=== PATIENT | female | born 1935 | race Caucasian/White ===

== ENCOUNTER 2017-10-04 15:40 | Emergency (ER) | payer MEDICARE ==
[~2017-10-04] VITALS: Ht 167.6 cm; Wt 90.9 kg
[~2017-10-04 15:40] MED LIST: ALEVE220 M1 OR; CALCIUM +D OR; D-3-55000 UNIT OR; DILANTIN100 MG PO; E400400 UNIT OR; FLUZONE SPLT1 M1 IM; FOLIC ACID1 MG PO; GINKGO BILOBA500 MG OR; KEFLEX500 MG PO; LEVOTHYROXIN150 MC1 PO; MELOXICAM15 MG PO; MSM1000 MG OR; NAPROXEN500 MG PO; PERCOCET 5/325M1 TAB PO; PERCOCET1 TA4 PO; PHENYTOIN EX100 MG OR; PHENYTOIN EX100 MG PO; SIMVASTATIN20 MG PO; SIMVASTATIN80 MG OR; WHEELCHAIR; [UNRECOGNIZED DRUG - CODE] PO
[2017-10-04 16:54] LABS: HEMATOCRIT 41.7 % (37.0-47.0); HEMOGLOBIN 14.2 g/dl (12.0-16.0); IMMATURE GRANULOCYTES 0.2 % (0.0-1.0); MEAN CELL VOLUME 94.6 fL CALC (80.0-100.0); MEAN CORPUSCULAR HGB 32.2 pG CALC (26.0-32.0); MEAN CORPUSCULAR HGB CONC 34.1 g/L CALC (32.0-36.0); NEUT# 8.12 thou/uL (2.00-7.15); RED BLOOD COUNT 4.41 mill/uL (4.20-5.60); RED CELL DISTRI WIDTH 12.5 % (11.5-15.5)
[2017-10-04 17:12] LABS: ALBUMIN 4.5 g/dL (3.2-5.0); ALKALINE PHOSPHATASE 137 u/l (38-126); AMYLASE 66 u/l (30-110); ANION GAP 16 (6-22 (CALC)); BILIRUBIN, TOTAL 0.7 mg/dL (0.0-1.4); BUN 16 mg/dL (8-23); BUN/CREATININE RATIO 21 (12-20 (CALC)); CALCIUM 9.4 mg/dL (8.4-10.2); CARBON DIOXIDE 28 mmol/l (22-30); CHLORIDE 103 mmol/l (95-108); CREATININE 0.8 mg/dL (0.5-1.0); GFR > 60 ML/MIN (>=60 (CALC)); GFR FOR AFR.AMER. > 60 ML/MIN (>=60 (CALC)); GLUCOSE 148 mg/dL (82-115); LIPASE 13 u/l (23-300); POTASSIUM 4.3 mmol/l (3.5-5.1); SGOT/AST 24 u/l (9-36); SGPT/ALT 24 u/l (11-66); SODIUM 143 mmol/l (137-146); TOTAL PROTEIN 8.3 g/dL (6.3-8.2)
[2017-10-04 17:23] LABS: MYOGLOBIN 86 ng/mL (0 - 62)
[2017-10-04] MEDS ORDERED: CIPROFLOXACN500 MG PO (18:00)
[2017-10-04] MEDS ORDERED: NEXIUM40 M1 PO (18:00)
[2017-10-04] MEDS ORDERED: ZOFRAN ODT4 MG PO (18:00)
[2017-10-04 18:35] VITALS: BP 174/77
== END 2017-10-04 18:35 | disposition home or self-care (01) ==
LOC: ED 15:40
PROVIDERS: Emergency Medicine
DX: K52.9 Noninfective gastroenteritis and colitis, unspecified (principal); N28.89 Other specified disorders of kidney and ureter; R11.10 Vomiting, unspecified; R53.1 Weakness; E78.5 Hyperlipidemia, unspecified; E03.9 Hypothyroidism, unspecified; R10.9 Unspecified abdominal pain

== ENCOUNTER 2018-01-01 21:38 | Emergency (ER) | payer MEDICARE ==
[~2018-01-01] VITALS: Ht 167.6 cm; Wt 90.9 kg
[~2018-01-01 21:38] MED LIST changes: +CIPROFLOXACN500 MG PO; +NEXIUM40 M1 PO; +ZOFRAN ODT4 MG PO
[2018-01-01 22:18] VITALS: BP 138/70
== END 2018-01-01 22:28 | disposition home or self-care (01) ==
LOC: ED 21:38
DX: T83.89XA Other specified complication of genitourinary prosthetic devices, implants and grafts, initial encounter (principal); C64.9 Malignant neoplasm of unspecified kidney, except renal pelvis; Z48.01 Encounter for change or removal of surgical wound dressing

== ENCOUNTER 2018-12-03 11:21 | Inpatient (IN) | payer MEDICARE ==
[2018-12-03] VITALS (10 sets, daily range): BP systolic 97–139; BP diastolic 40–71
[~2018-12-03] VITALS: Ht 167.6 cm; Wt 96.5 kg
--- NOTE | 2018-12-03 11:21 | NUR ---
PATIENT ARRIVES TO ED VIA EMS, REPORTS PATIENT FOUND ON FLOOR BY FAMILY. HISTORY OF SEIZURES.
--- NOTE | 2018-12-03 11:40 | NUR ---
PT A&OX 3 GRANDDAUGHTER AT BEDSIDE.
[2018-12-03 11:55] LABS: HEMATOCRIT 42.2 % (37.0-47.0); HEMOGLOBIN 14.3 g/dl (12.0-16.0); IMMATURE GRANULOCYTES 0.5 % (0.0-5.0); MEAN CELL VOLUME 94.2 fL CALC (80.0-100.0); MEAN CORPUSCULAR HGB 31.9 pG CALC (26.0-32.0); MEAN CORPUSCULAR HGB CONC 33.9 g/L CALC (32.0-36.0); NEUT# 14.23 thou/uL (2.00-7.15); RED BLOOD COUNT 4.48 mill/uL (4.20-5.60); RED CELL DISTRI WIDTH 12.7 % (11.5-15.5)
--- NOTE | 2018-12-03 12:03 | NUR ---
PT ALERT/ORIENTED X3, STATES SHE THINKS SHE MIGHT HAVE RUCHI ON FLOOR FOR A DAY OR SO, DENIES KNOWLEDGE OF SEIZURE.
[2018-12-03 12:04] LABS: ALBUMIN 4.2 g/dL (3.2-5.0); BILIRUBIN, TOTAL 0.8 mg/dL (0.0-1.4); CREATININE 1.6 mg/dL (0.5-1.0); POTASSIUM 4.1 mmol/l (3.5-5.1); TOTAL PROTEIN 7.8 g/dL (6.3-8.2)
--- NOTE | 2018-12-03 13:05 | NUR ---
TEMP RETAKEN 98.1
--- NOTE | 2018-12-03 13:10 | NUR ---
DR. HERNANDEZ IS SPEAKING WITH PT. PTS FLUIDS INFUSING, 2ND LITRE. VITAL SIGNS STABLE.
--- NOTE | 2018-12-03 13:44 | NUR ---
PT HAS HAD NUMEROUS DIARRHEA/YELLOW BOWEL MOVEMENTS. DR. LEI ORDERING 3 RD BAG OF NS AND ROCEPHIN PER SEPSIS PROTOCOL
--- NOTE | 2018-12-03 14:00 | NUR ---
REPORT RECVD FROM ERMELINDA ANDERSON IN ER.
--- NOTE | 2018-12-03 14:12 | NUR ---
PT ARRIVED TO ICU 1 FROM ED BY STRETCHER IN STABLE CONDITION. TRANSFERED TO NEW BED x3. PT ATTACHED TO MONITORS AND GIVEN BLANKETS. EXPLAINED CALLBELL & BED CONTROLS. FALL RISK & ALLERGY BAND PLACED. PT A&Ox3. GRANDDAUGHTER @BEDSIDE.
--- NOTE | 2018-12-03 14:19 | NUR ---
REPORT GIVEN TO [facility] ICU AND PT TAKEN PER STRETCHER WITH RAMON. FLUIDS AND ROCEPHIN HAVE INFUSED. PTS VITAL SIGNS REMAIN STABLE, PT REMAINS ALERT/ORIENTED X3
--- NOTE | 2018-12-03 14:45 | NUR ---
PT BROUGHT TO [facility] ER AFTER BEING ON HER TILE FLOOR SINCE TUESDAY NIGHT. PT STATES SHE'S BEEN LAYING ON HER BACK THE WHOLE TIME. PT HAS HX OF SEIZURES BUT DOES NOT THINK SHE HAD ONE. PT USES READING GLASSES; NO HEARING AIDS; HAS UPPER & LOWER DENTURES. ALLERGIC TO CODEINE. HAS ALREADY HAD THE FLU & PNA SHOT. PT DRIVES HER SELF; LIVES NEXT DOOR TO FAMILY; IS CURRENTLY IN A REHAB. PT HAD DIARRHEA x5 IN THE ER TODAY PRIOR TO COMING TO THE ICU. DENIES HAVING TO TAKE ANY LAXATIVES OR ENEMAS AT HOME. DENIES PAIN ON URINATION. DENIES N/V. ABD SOFT/NONTENDER, HYPOACTIVE BS. PTS MIDLINE BUTTOCKS ARE RED AND HAS BRUISING TO BODY FROM BEING ON THE FLOOR. BREATHING IS EVEN/UNLABORED ON RA, LUNG SOUNDS CLEAR. STRONG PULSES x4. SALCIDO BUT STATES HER LEGS FEEL LIKE THEY ARE ASLEEP. EYES PERRLA @3. GLOBAL PRODUCT MANAGER IS MODERATE, UNABLE TO OVERCOME GRAVITY TO HER LEGS. PT IS A&Ox3. PT STATES SHE DID NOT EAT OR DRINK OR TAKE HER MEDICAITONS SINCE Tuesday. DIET ORDER PLACED FOR PT AND SNACK TRAY ORDERED.
--- NOTE | 2018-12-03 15:05 | NUR ---
PUREWICK PLACED AFTER PERICARE PROVIDED, HOOKED TO SUCTION ON WALL.
--- NOTE | 2018-12-03 15:34 | NUR ---
SNACK TRAY ARRIVED. PT APPEARS TO BE SLEEPING, EYES CLOSED. TRAY PLACED ON BEDSIDE TABLE. VSS.
--- NOTE | 2018-12-03 15:50 | NUR ---
PT WOKE UP, ALERT BUT CONFUSED. PT ASKING WHAT DAY & TIME IT IS. WINDOW BLINDS OPENED TO REDIRECT PT. PT STATES SHE "WILL EAT IN A LITTLE BIT".
--- NOTE | 2018-12-03 17:30 | NUR ---
PT WOKEN UP TO LET HER KNOW DINNER IS ON TRAY AT BEDSIDE. PT EASILY AROUSED BUT WENT BACK TO SLEEP. CALLBELL W/IN REACH. WILL CONTINUE TO MONITOR.
--- NOTE | 2018-12-03 18:08 | NUR ---
PT SITTING UP IN BED, EATING DINNER. PT DOES NOT LIKE PORK BC SHE CAN'T CHEW IT BUT IS EATING THE SOUP, MASHED POTATOES, & VEGATABLES. SUGAR PLACED IN US TEA. PT GIVEN ANOTHER DIET SODA. PTS FOOD SALT & PEPPERED. PORK CHOP CUT UP. PT CONFUSED TO WHAT TIME OF DAY IT IS.
--- NOTE | 2018-12-03 18:55 | NUR ---
REPORT FROM Parish LUDNBERG RN. ASSUMED PT. CARE.
--- NOTE | 2018-12-03 19:20 | NUR ---
PT. FOUND AWAKE, ALERT, ORIENTED X 3. SHORT TERM MEMORY SEEMS SOMEWHAT SUSPECT. PT. WILL ASK SOME OF THE SAME QUESTIONS MULTIPLE TIMES, BUT IS ORIENTED X 3. C/O MILD PAIN TO BUTTOCKS BILAT. REDNESS NOTED TO BILATERAL BUTTOCKS. SALCIDO. HUMA. RESPS EVEN AND UNLABORED. VSS. CALL LIGHT WITHIN REACH. PT. REPOSITIONED FOR COMFORT. LUNGS CTA. BOWEL SOUNDS PRESENT. IV FLUIDS INFUSING ORDERED. PUREWICK IN PLACE. WILL CONTINUE TO MONITOR.
--- NOTE | 2018-12-03 20:30 | NUR ---
PT. CLEANSED OF URINE AT THIS TIME. PUREWICK REPLACED. LINENS CHANGED. PERICARE PROVIDED WITH ASSIST OF ERMELINDA OLSEN. RESPS REMAIN EVEN AND UNLABORED. SKIN REMAINS WARM AND DRY. DENIES COMPLAINTS OF PAIN OR NEEDS.
--- NOTE | 2018-12-03 22:28 | NUR ---
PT. RESTING WITH EYES CLOSED AND SNORING RESPIRATIONS. BP REMAINS SLIGHTLY LOW. IV FLUIDS CONTINUE TO INFUSE WITHOUT INFILTRATION OR EXTRAVASATION. CALL LIGHT REMAINS WITHIN REACH. REMAINS SLEEPING ON LT. SIDE AT THIS TIME. WILL REPOSITION FOR COMFORT.
[2018-12-04] VITALS (7 sets, daily range): BP systolic 90–103; BP diastolic 44–64
--- NOTE | 2018-12-04 00:57 | NUR ---
PT. REPOSITIONED FOR COMFORT ONTO LT. SIDE. VOICES NO OTHER COMPLAINTS OR NEEDS. IV FLUIDS CONTINUE TO INFUSE AT THIS TIME. CALL LIGHT REMAINS WITHIN REACH. WILL CONTINUE TO ASSESS.
--- NOTE | 2018-12-04 02:32 | NUR ---
PT. RESTING IN BED WITH EYES CLOSED IN NO DISTRESS. CALL LIGHT REMAINS WITHIN REACH. VOICES NO COMPLAINTS OR NEEDS AT THIS TIME. WILL CONTINUE TO ASSESS.
--- NOTE | 2018-12-04 04:20 | NUR ---
PT. RESTING IN BED ON LT. SIDE IN NO DISTRESS. RESPS EVEN AND UNLABORED. BP REMAINS SLIGHTLY LOW WHILE SLEEPING. VOICES NO COMPLAINTS OR NEEDS. CALL LIGHT REMAINS WITHIN REACH. WILL CONTINUE TO ASSESS.
--- NOTE | 2018-12-04 06:15 | NUR ---
LAB AT BEDSIDE AT THIS TIME. URINE SPECIMEN OBTAINED AND SENT. PT. REMAINS EASILY AROUSABLE TO LIGHT VERBAL STIMULI. REMAINS ALERT, ORIENTED X 3. SKIN REMAINS WARM AND DRY. NO DISTRESS. RESPS EVEN AND UNLABORED.
[2018-12-04 06:29] LABS: URINE BLOOD DIPSTICK MODERATE (NEGATIVE); URINE COLOR YELLOW; URINE GLUCOSE - DIPSTICK NEGATIVE (NEGATIVE); URINE KETONE TRACE mg/dL (NEGATIVE); URINE PH 5.5 (4.5-8.0); URINE PROTEIN - DIPSTICK 30 mg/dL (NEG-TRACE); URINE SPECIFIC GRAVITY 1.025; URINE UROBILINOGEN - DIPSTICK 0.2 E.U./dL (0.2)
[2018-12-04 06:29] LABS: HEMATOCRIT 31.4 % (37.0-47.0); HEMOGLOBIN 10.7 g/dl (12.0-16.0); IMMATURE GRANULOCYTES 0.5 % (0.0-5.0); MEAN CELL VOLUME 95.4 fL CALC (80.0-100.0); MEAN CORPUSCULAR HGB 32.5 pG CALC (26.0-32.0); MEAN CORPUSCULAR HGB CONC 34.1 g/L CALC (32.0-36.0); NEUT# 6.52 thou/uL (2.00-7.15); RED BLOOD COUNT 3.29 mill/uL (4.20-5.60); RED CELL DISTRI WIDTH 12.8 % (11.5-15.5)
[2018-12-04 06:41] LABS: BILIRUBIN, TOTAL 0.5 mg/dL (0.0-1.4); CHOLESTEROL HDL RATIO 2.8 (<4.4 (CALC)); CREATININE 1.2 mg/dL (0.5-1.0); MAGNESIUM 1.9 mg/dL (1.6-2.3); POTASSIUM 3.8 mmol/l (3.5-5.1)
[2018-12-04 06:42] LABS: URINE BILIRUBIN - DIPSTICK NEGATIVE (NEGATIVE); URINE NITRITE - DIPSTICK POSITIVE (Negative)
[2018-12-04 06:43] LABS: URINE BACTERIA MANY hpf; URINE LEUK ESTERASE SMALL (NEGATIVE); URINE SQUAMOUS EPITHELIAL CELL FEW EPI/hpf (0-FEW)
[2018-12-04 06:44] LABS: ALBUMIN 2.6 g/dL (3.2-5.0); TOTAL PROTEIN 5.1 g/dL (6.3-8.2)
--- NOTE | 2018-12-04 07:30 | NUR ---
ASSESSMENT IS COMPLTED: IV SITE IS FREE FROM REDNESS OR EDEMA. HR IS REG,PULSES ARE STRONG X4, ABD IS SOFT WITH ACTIVE BS, BREATH SOUNDS ARE CLEAR, BILATERALLY. C/O "FEELING NUMB ON HANDS AND FEET", PURE WICK IN PLACE., CONTINUE TO OSBERVE AND MONITOR.
--- NOTE | 2018-12-04 09:41 | NUR ---
PT C/O BEING COLD. TEMP WAS 100.7. GAVE MEDICATION FOR DISCOMFORT. CHANGED PT DUE TO BEING SLIGHTLY WET. CONTINUE TO OSBERVE AND MONITOR. PUREWICK PLACED. PT IS COMFORTABLY ON HER LEFT SIDE.
--- NOTE | 2018-12-04 10:10 | NUR ---
ATTEMPTED TO PLACE A MANUEL UNSUCCESSFUL. IV SITE IS FREE FROM REDNESS OR EDEMA. CONTINUE TO OSBERVE AND MONITOR. DR. LOPEZ IN TO VISIT WITH PT AND ORDERS OBTAINED.
--- NOTE | 2018-12-04 12:00 | NUR ---
16 MALTESE MANUEL PLACED AND PT TOLERATED WELL. IV SITE IS FREE FROM REDNESS OR EDEMA. SENT URINE FOR TESTING. CONTINUE TO OSBERVE AND MONITOR. URINE IN LINE IS SEDIMENT AND LEISA. DR. PANIAGUA IN TO VISIT WITH PT EXPLAINING THAT SHE NEEDS THE MANUEL DUE TO NEEDING FLUIDS WITH HER KIDNEYS. VERBALIZED UNDERSTANDING.
--- NOTE | 2018-12-04 12:00 | NUR ---
PT HAS HAD VISITORS TODAY NO DISTRESS NOTED. IV SITE IS FREE FROM REDNESS OR EDEMA.
[2018-12-04 12:24] LABS: URINE BILIRUBIN - DIPSTICK NEGATIVE (NEGATIVE); URINE BLOOD DIPSTICK MODERATE (NEGATIVE); URINE COLOR YELLOW; URINE GLUCOSE - DIPSTICK NEGATIVE (NEGATIVE); URINE KETONE NEGATIVE (NEGATIVE); URINE LEUK ESTERASE SMALL (Negative); URINE NITRITE - DIPSTICK POSITIVE (Negative); URINE PH 5.5 (4.5-8.0); URINE PROTEIN - DIPSTICK 30 mg/dL (NEG-TRACE); URINE UROBILINOGEN - DIPSTICK 0.2 E.U./dL (0.2)
[2018-12-04 12:25] LABS: URINE CLARITY CLOUDY
[2018-12-04 12:26] LABS: URINE BACTERIA MANY hpf; URINE EPITHELIAL CELLS MODERATE EPI/hpf (0-FEW)
--- NOTE | 2018-12-04 12:59 | NUR ---
TROPONIN IS DECREASED TO 0.341 PER AL IN LAB
--- NOTE | 2018-12-04 14:10 | NUR ---
JANETT FROM US IN THE ROOM TO START KIDNEY ULTRA SOUND
--- NOTE | 2018-12-04 14:30 | NUR ---
FAMILY IN THE ROOM. NO DISTRESS NOTED. CONTINUES TO C/O NUMBNESS FEELING ON FINGERS AND TOES. CONTINUE TO OSBERVE AND MONITOR.
--- NOTE | 2018-12-04 16:00 | NUR ---
PT IS RESTING IN BED WITH NO DISTRESS NOTED. IV SITE IS FREE FROM REDNESS OR EDEMA. MANUEL INTACT DRAINING LEISA UA WITH SEDIMENT
--- NOTE | 2018-12-04 18:10 | NUR ---
US REPORT ON THE CHART
--- NOTE | 2018-12-04 20:00 | NUR ---
PT SITTING UP IN BED WATCHING TV. PT IS ALERT AND ORIENTED X3. SHIFT ASSESSMENT COMPLETED AT THIS TIME. PLAN OF CARE REVIEWED WITH PT. PT VERBALIZED UNDERSTANDING. TEMP 100.5. MEDICATED PER MAR. CALL LIGHT IN REACH. WILL CONTINUE TO MONITOR.
--- NOTE | 2018-12-04 22:10 | NUR ---
PT RESTING IN BED AWAKE AND WATCHING TV. CALL LIGHT IN REACH. WILL CONTINUE TO MONITOR.
--- NOTE | 2018-12-04 23:41 | NUR ---
PT RESTING IN BED WATCHING TV. RESP ARE EVEN AND UNLABORED. NO DISTRESS NOTED. CALL LIGHT IN REACH. WILL CONTINUE TO MONITOR.
[2018-12-05] VITALS (13 sets, daily range): BP systolic 92–136; BP diastolic 50–69
--- NOTE | 2018-12-05 00:56 | NUR ---
ADRIAN FROM LAB CALLED WITH ELEVATED TROPONIN OF 0.244. PROVIDERS ALREADY AWARE OF ELEVATED TROPONIN.
--- NOTE | 2018-12-05 02:00 | NUR ---
PT RESTING IN BED WITH EYES CLOSED. RESP ARE EVEN AND UNLABORED. NO DISRTRESS NOTED. CALL LIGHT IN REACH. WILL CONITNUE TO M ONITOR.
--- NOTE | 2018-12-05 03:55 | NUR ---
PT RSTING IN BED WITH EYES CLOSED. RESP ARE EVEN AND UNLABORED. NO DISTRESS NOTED. CALL LIGHT IN REACH. WILL CONTINUE TO MONITOR.
--- NOTE | 2018-12-05 04:29 | NUR ---
PASSENGER SOLICITOR AT BEDSIDE TO DRAW AM LABS
[2018-12-05 05:19] LABS: HEMOGLOBIN 10.1 g/dl (12.0-16.0); IMMATURE GRANULOCYTES 0.7 % (0.0-5.0); MEAN CELL VOLUME 95.2 fL CALC (80.0-100.0); MEAN CORPUSCULAR HGB 32.1 pG CALC (26.0-32.0); MEAN CORPUSCULAR HGB CONC 33.7 g/L CALC (32.0-36.0); NEUT# 4.56 thou/uL (2.00-7.15); RED BLOOD COUNT 3.15 mill/uL (4.20-5.60)
[2018-12-05 05:30] LABS: ALBUMIN 2.4 g/dL (3.2-5.0); ALKALINE PHOSPHATASE 60 u/l (38-126); AMYLASE < 30 u/l (30-110); ANION GAP 9 (6-22 (CALC)); BILIRUBIN, TOTAL 0.3 mg/dL (0.0-1.4); BUN 26 mg/dL (8-23); BUN/CREATININE RATIO 30 (12-20 (CALC)); CARBON DIOXIDE 22 mmol/l (22-30); CHLORIDE 113 mmol/l (95-108); CPK 1073 u/l (30-165); CREATININE 0.9 mg/dL (0.5-1.0); GFR 60 ML/MIN (>=60 (CALC)); GFR FOR AFR.AMER. > 60 ML/MIN (>=60 (CALC)); LIPASE 20 u/l (23-300); MAGNESIUM 1.7 mg/dL (1.6-2.3); POTASSIUM 3.9 mmol/l (3.5-5.1); SGOT/AST 54 u/l (9-36); SODIUM 140 mmol/l (137-146); TOTAL PROTEIN 4.9 g/dL (6.3-8.2)
[2018-12-05 05:41] LABS: CHOLESTEROL HDL RATIO 3.1 (<4.4 (CALC))
--- NOTE | 2018-12-05 06:11 | NUR ---
PT RESTING IN BED WITH EYES CLOSED. RESP ARE EVEN AND UNLABORED. NO DISTRESS NOTED. CALL LIGHT IN REACH. WILL CONTINUE TO MONITOR,
--- NOTE | 2018-12-05 07:30 | NUR ---
awake in bed; visitor present at bedside; no apparent distress noted; assessment completed at this time; pt alert and oriented; complaints of discomfort to right hip/thigh area; offers no additional complaints; resp even and unlabored; lungs clear; skin color wnl; ra; hr reg; strong pulses; 2+ edema noted to ble; abd soft with bs present; no bm noted per investigative writer; mckeon to gravity with cath roy intact; #20 in lac saline locked; #22 in lfa patent with ivf infusing without complication; no redness or edema noted at site; plan of care/ am meds explained; call light within reach; will continue to monitor
--- NOTE | 2018-12-05 08:04 | NUR ---
awake in bed eating breakfast; no apparent distress noted; pt offers no complaints at present; sr on monitor; mckeon to gravity; call light within reach; will continue to monitor
--- NOTE | 2018-12-05 09:20 | NUR ---
Dr Kuo present at bedside to assess pt and discuss plan of care; right leg assess per MD; no orders at this time
--- NOTE | 2018-12-05 10:20 | NUR ---
awake in bed; visitor present at bedside; pt offers no complaints; iv intact and patent; no redness or edema noted at site; sr on monitor; mckeon to gravity; call light within reach; will continue to monitor
--- NOTE | 2018-12-05 12:13 | NUR ---
awake in bed; offers no complaints; no apparent distress noted; iv patent; fluids infusing without complication; no redness or edema noted at site; sr on monitor; mckeon to gravity; call light within reach; will continue to monitor
--- NOTE | 2018-12-05 14:15 | NUR ---
complete bed bath with catheter care done; linens changed; iv patent; fluids infusing without complication; no redness or edema noted at site; sr on monitor; mckeon to gravity; pt with complaints of generalized pain and right leg pain; will medicate; offers no additional complaints/concerns; call light within reach; will continue to monitor
--- NOTE | 2018-12-05 16:20 | NUR ---
awake in bed; no apparent distress noted; iv patent; fluids infusing without complication; no redness or edema noted at site; sr on monitor; mckeon to gravity; call light within reach; will continue to monitor
--- NOTE | 2018-12-05 17:50 | NUR ---
Dr Allan present at bedside to assess pt and discuss plan of care
--- NOTE | 2018-12-05 18:07 | NUR ---
pt awake in bed; offers complaints of pain to right leg; will medicate; repositioned for comfort; no apparent distress noted; iv patent; fluids infusing without complication; no redness or edema noted at site; mckeon to gravity; sr on monitor; call light within reach
--- NOTE | 2018-12-05 19:00 | NUR ---
PT SITTING UP IN BED WATCHING TV. PT IS ALERT AND ORIENTED X3. SHIFT ASSESSMENT COMPLETED AT THIS TIME. PLAN OF CARE REVIEWED WITH PT. PT WITH COMPLAINTS OF GENERALIZED PAIN. WILL MEDICATE WITH TYLENOL WHEN IT IS DUE. CALL LIGHT IN REACH. WILL CONTINUE TO MONITOR.
--- NOTE | 2018-12-05 20:15 | NUR ---
FAMILY AT BEDSIDE VISITING. HS MEDS GIVEN PER JAN.
--- NOTE | 2018-12-05 22:29 | NUR ---
PT RESTING IN BED WITH EYES CLOSED. PT HAS BRIEF PERIODS THAT SHE AWAKENS AND ASKS FOR A DRINK. RESP ARE EVEN AND UNLABORED. DRY COUGH NOTED AT THIS TIME. CALL LIGHT IN REACH. WILL CONTINUE TO MONITOR.
[2018-12-06] VITALS (10 sets, daily range): BP systolic 111–154; BP diastolic 58–85
--- NOTE | 2018-12-06 | NUR ---
PT RESTING IN BED. PT WITH COMPLAINTS OF FEELING UNCOMFORTABLE. REPOSITIONED PATIENT. CALL LIGHT IN REACH. WILL CONTINUE TO MONITOR.
--- NOTE | 2018-12-06 02:00 | NUR ---
PT RESTING IN BED AWAKE. CONTINUES WITH COMPLAINTS OF BEING UNCOMFORTABLE. REPOSITIONED PT AGAIN. PT STATES THAT SHE HAS DRY MOUTH. ENCOURAGE PT TO DRINK BEVERAGES LOCATED ON BEDSIDE TABLE. OFFERRED TO MOVE TABLE CLOSER FOR PT. PT DECLINED AND WAS ABLE TO REACH ALL ITEMS ON BEDSIDE TABLE. CALL LIGHT IN REACH. WILL CONTINUE TO LEXX
--- NOTE | 2018-12-06 04:38 | NUR ---
INNER TUBE CUTTER INTO DRAW AM LABS. PT REQUESTING MILK AND TO BE REPOSITIONED AFTER LABS DRAWN. ALL REQUESTS FULFILLED. CALL LIGHT IN REACH WILL CONTINUE TO MONIUTOR.
[2018-12-06 05:11] LABS: HEMATOCRIT 29.6 % (37.0-47.0); HEMOGLOBIN 10.1 g/dl (12.0-16.0); IMMATURE GRANULOCYTES 0.6 % (0.0-5.0); MEAN CELL VOLUME 95.2 fL CALC (80.0-100.0); MEAN CORPUSCULAR HGB 32.5 pG CALC (26.0-32.0); MEAN CORPUSCULAR HGB CONC 34.1 g/L CALC (32.0-36.0); NEUT# 5.77 thou/uL (2.00-7.15); RED BLOOD COUNT 3.11 mill/uL (4.20-5.60); RED CELL DISTRI WIDTH 13.1 % (11.5-15.5)
[2018-12-06 05:27] LABS: ALBUMIN 2.4 g/dL (3.2-5.0); ALKALINE PHOSPHATASE 64 u/l (38-126); ANION GAP 8 (6-22 (CALC)); BILIRUBIN, TOTAL 0.2 mg/dL (0.0-1.4); BUN 17 mg/dL (8-23); BUN/CREATININE RATIO 22 (12-20 (CALC)); CARBON DIOXIDE 21 mmol/l (22-30); CHLORIDE 114 mmol/l (95-108); CPK 490 u/l (30-165); CREATININE 0.8 mg/dL (0.5-1.0); GFR > 60 ML/MIN (>=60 (CALC)); GFR FOR AFR.AMER. > 60 ML/MIN (>=60 (CALC)); MAGNESIUM 1.6 mg/dL (1.6-2.3); POTASSIUM 3.9 mmol/l (3.5-5.1); SGOT/AST 36 u/l (9-36); SODIUM 139 mmol/l (137-146); TOTAL PROTEIN 4.8 g/dL (6.3-8.2)
--- NOTE | 2018-12-06 06:21 | NUR ---
pt resting in bed with eyes closed. resp are even and unlabored. no distress noted. call light in reach. will continue to monitor.
--- NOTE | 2018-12-06 07:54 | NUR ---
PT LAYING ON RIGHT SIDE. FREQUENTLY ON CALLBELL. PT A&Ox4 BUT OFTEN CONFUSED. C/O PAIN TO RIGHT HIP WITH NUMBNESS/TINGLING DOWN BOTH LEGS. SALCIDO. STRONG PULSES x4 WITH +1 EDEMA TO BILATERAL LOWER LEGS/FEET. ABD SOFT/DISTENDED/NONTENDER, ACTIVE BS. DENIES N/V/D. SALCIDO. BREATING EVEN/UNLABORED WITH WHEEZING TO LEFT UPPER LOBE, ALL OTHER LOBES CLEAR. PT STATES SHES NOT THAT HUNGRY THIS MORNING.
--- NOTE | 2018-12-06 09:26 | NUR ---
DR LOPEZ @BEDSIDE. SON, EMIL, ON SPEAKER PHONE. WILL ORDER XR FOR RIGHT LEG PAIN. DR LOPEZ ASSESSED PT, INCLUDING ROM OF RIGHT LEG & DISCUSSED TEST RESULTS & POC. WILL DOWNGRADE TO [facility].
--- NOTE | 2018-12-06 09:55 | NUR ---
PT ASSISTED TO MOVE SELF UP IN BED. SITTING UP IN BED, EATING BREAKFAST. PTS CELLPHONE CHARGING.
--- NOTE | 2018-12-06 11:20 | NUR ---
PHYSICAL THERAPY @BEDSIDE.
--- NOTE | 2018-12-06 12:55 | NUR ---
REPORT GIVEN TO ORALIA JACOBS IN MSU FOR TRANSFER.
--- NOTE | 2018-12-06 13:23 | NUR ---
PT TRANSFERED TO [facility] 260 BY WC WITH IV & TELE IN STABLE CONDITION. PT AWARE OF TRANSFER.
--- NOTE | 2018-12-06 13:30 | NUR ---
PT ARRIVED FROM ICU VIA WC ACCOMPANIED BY STAFF. IV SITE AND TELE MONITOR IN PLACE. MANUEL DRAINING YELLOW URINE
--- NOTE | 2018-12-06 14:00 | NUR ---
IV SITE STOPPED WORKING, AND THE OTHER ONE LEAKED. ATTEMPTED TO RESTART IV UNSUCCESSFUL. IV OBTAINED BY BRETT WADSWORTH IN RFA #22. PT TOLERATED WELL.
--- NOTE | 2018-12-06 16:00 | NUR ---
PT IS RESTING IN BED , IV SITE IS FREE FROM REDNESS OR EDMEA.
--- NOTE | 2018-12-06 20:57 | NUR ---
PT. RESTING IN BED ON LEFT SIDE ABLE TO REPOSITION SELF; PT. REQUESTING SOMETHING TO HELP HER SLEEP; MEDICATED WITH ORDERED PRN SONATA ALONG WITH SCHED MEDICATION; PO FLUIDS OFFERED; IV SITES X2 REMOVED FORM LEFT ARM DUE TO THEM BEING OCCLUDED; CATH TIPS INTACT; DENIES FURTHER NEEDS; CALL LIGHT IS IN REACH.
--- NOTE | 2018-12-06 22:10 | NUR ---
RESTING IN BED WITH EYES CLOSED. RESP EVEN AND UNLABORED; CALL LIGHT IS IN REACH.
--- NOTE | 2018-12-06 23:45 | NUR ---
pt. resting in bed with no distress noted; denies needs/pain. encouraged to call for any needs; call light is in reach.
[2018-12-07 00:15] VITALS: BP 126/60
--- NOTE | 2018-12-07 02:53 | NUR ---
PT. C/O RLE PAIN; MEDICATED WITH ORDERED TYLENOL; WILL REASSESS; PO FLUIDS OFFERED; CALL LIGHT IS IN REACH.
--- NOTE | 2018-12-07 05:17 | NUR ---
SCHED SYNTHROID GIVEN; PT. DENIES NEEDS/PAIN; CALL LIGHT IS IN REACH.
[2018-12-07 05:34] VITALS: BP 133/65
[2018-12-07 05:35] LABS: HEMATOCRIT 31.8 % (37.0-47.0); HEMOGLOBIN 10.7 g/dl (12.0-16.0); IMMATURE GRANULOCYTES 0.9 % (0.0-5.0); MEAN CELL VOLUME 96.7 fL CALC (80.0-100.0); MEAN CORPUSCULAR HGB 32.5 pG CALC (26.0-32.0); MEAN CORPUSCULAR HGB CONC 33.6 g/L CALC (32.0-36.0); NEUT# 4.15 thou/uL (2.00-7.15); RED BLOOD COUNT 3.29 mill/uL (4.20-5.60); RED CELL DISTRI WIDTH 13.2 % (11.5-15.5)
[2018-12-07 05:43] LABS: ALBUMIN 2.6 g/dL (3.2-5.0); ALKALINE PHOSPHATASE 69 u/l (38-126); ANION GAP 10 (6-22 (CALC)); BILIRUBIN, TOTAL 0.3 mg/dL (0.0-1.4); BUN 14 mg/dL (8-23); BUN/CREATININE RATIO 17 (12-20 (CALC)); CARBON DIOXIDE 21 mmol/l (22-30); CHLORIDE 110 mmol/l (95-108); CPK 227 u/l (30-165); CREATININE 0.8 mg/dL (0.5-1.0); GFR > 60 ML/MIN (>=60 (CALC)); GFR FOR AFR.AMER. > 60 ML/MIN (>=60 (CALC)); MAGNESIUM 1.6 mg/dL (1.6-2.3); POTASSIUM 4.1 mmol/l (3.5-5.1); SGOT/AST 30 u/l (9-36); SODIUM 138 mmol/l (137-146); TOTAL PROTEIN 5.2 g/dL (6.3-8.2)
[2018-12-07 08:32] VITALS: BP 140/78
--- NOTE | 2018-12-07 08:38 | NUR ---
PT A/O X3 W/ SOME FORGETFULNESS. SPEECH IS CLEAR. RESP EVEN AND UNLABORED. LUNG SOUNDS CLEAR. TELE IN PLACE. BOWEL SOUNDS ACTIVE X4. STRONG RADIAL AND PEDAL PULSES. #22 RFA NS @150. SITE APPEARS HEALTHY. PT HAS +1 EDEMA TO BLE. ENCOURAGED ELEVATION. MANUEL CATHETER DRAINING CLEAR YELLOW URINE TO GRAVITY. PT DENIES ANY PAIN OR NEEDS. POC DISCUSSED. SAFETY PRECAUTIONS IN PLACE. CALL LIGHT IN REACH. WILL CONTINUE TO MONITOR.
--- NOTE | 2018-12-07 08:52 | NUR ---
Pt. refused physical therapy treatment this morning, attending nurse informed.
--- NOTE | 2018-12-07 11:20 | NUR ---
DR. LOPEZ IN TO SEE PT
--- NOTE | 2018-12-07 11:41 | NUR ---
PT GETTING READY TO GET A SHOWER. #22 RFA IV REMOVED DUE TO INFILTRATE. CATHETER INTACT. PT DENIES ANY PAIN OR NEEDS. CALL LIGHT IN REACH. WILL CONTINUE TO MONITOR.
[2018-12-07 12:00] VITALS: BP 151/87
--- NOTE | 2018-12-07 15:26 | NUR ---
PT SITTING IN RECLINER TALKING W/ SON. NO C/O PAIN OR NEEDS. CALL LIGHT IN REACH. WILL CONTINUE TO MONITOR.
[2018-12-07 16:12] VITALS: BP 148/79
[2018-12-07 19:15] VITALS: BP 152/82
--- NOTE | 2018-12-07 19:35 | NUR ---
PT. SITTING UP IN BED WITH NO DISTRESS NOTED; ASSESSMENT COMPLETED; RESP EVEN AND UNLABORED; PRUNE JUICE PROVIDED TO ASSIST WITH BM; PT. MEDICATED WITH PRN TYLENOL FOR TEMP OF 100.7; WILL REASSESS; PT. REQUESTING SLEEPING PILL; WILL MEDICATE WITH ORDERED PRN SONATA SHORTLY; PO FLUIDS OFFERED; ENCOURAGED TO CALL FOR ANY NEEDS; CALL LIGHT IS IN REACH.
--- NOTE | 2018-12-07 21:00 | NUR ---
PT. ASSISTED TO REPOSITION ONTO LEFT SIDE FOR SLEEP; REASSESSED TEMP AND IS 99.2; WILL CONTINUE TO MONITOR.
--- NOTE | 2018-12-07 23:33 | NUR ---
PT. RESTING IN BED WITH EYES CLOSED; NO DISTRESS NOTED; RESP EVEN AND UNLABORED; CALL LIGHT IS IN REACH.
[2018-12-08 00:11] VITALS: BP 126/58
--- NOTE | 2018-12-08 02:06 | NUR ---
PT. C/O NAUSEA; MEDICATED WITH ORDERED ZOFRAN; WILL REASSESS; C/O RIGHT THIGH CRAMPING; APPLIED WARM PACK; DENIES FURTHER NEEDS; CALL LIGHT IS IN REACH.
[2018-12-08 04:20] VITALS: BP 137/77
--- NOTE | 2018-12-08 04:31 | NUR ---
PT. C/O RLE PAIN; MEDICATED WITH ORDERED PRN TYLENOL AND APPLIED WARM PACK TO RLE; PT. STILL HAS NOT HAD A BM; MEDICATED WITH PRN MOM ALONG WITH WARM PRUNE JUICE; PT. DENIES FURTHER NEEDS; CALL LIGHT IS IN REACH; WILL CONTINUE TO MONITOR.
--- NOTE | 2018-12-08 07:10 | NUR ---
REPORT RECIEVED FROM ERMELINDA GRIDER. PT SLEEPING. NO S/S OF DISTRESS. CALL LIGHT IN REACH. WILL CONTINUE TO MONITOR.
[2018-12-08 07:38] VITALS: BP 149/78
--- NOTE | 2018-12-08 07:38 | NUR ---
PT A/O X3 W/ SOME FORGETFULNESS. SPEECH IS CLEAR. RESP EVEN AND UNLABORED. EXPIRATORY WHEEZING NOTED ANTERIORLY TO UPPER AND MIDDLE LOBES, LOWER LOBES CLEAR. TELE IN PLACE. BOWEL SOUNDS ACTIVE X4. STORNG RADIAL AND PEDAL PULSES. PT C/O NUMBNESS TO HANDS AND FEET. MANUEL INTACT, DRAINING CLEAR YELLOW URINE TO GRAVITY. #22 LAC NS @150. SITE APPEARS HEALTHY. TRACE OF EDEMA NOTED TO BLE. ENCOURAGED ELEVATION WHEN OOB. PT DENIES ANY FURTHER NEEDS. POC DISCUSSED. SAFETY PRECAUTIONS IN PLACE. CALL LIGHT IN REACH. WILL CONTINUE TO MONITOR.
--- NOTE | 2018-12-08 08:59 | NUR ---
12/07/18 PM 0100 Patient is seen for dynamic therapeutic activity. She refused ambulation due to fatgue but was able to march in place for about 20 reps. She transferred OOB to stand with mod assist of 1-2
--- NOTE | 2018-12-08 10:05 | NUR ---
Pt seen this am for functional mobility. She was OOB in chair waiting for fran to come. She c/o quad pain and hurting, she did not give a number. Pt performed AROM to both ankles and approx 5 reps of LAQ then stated quad hurt too much to continue. Pt moved sit to stand with min assist x 1. Gait with standard walker x 20' and CGA. Pt required vc to stand tall. She did not reach for chair before sitting. Safety reminder needed. Pt in with fran at end of treatment. Pt reminded to do AROM and keep moving with assistance. Pt left in chair with call miller in reach.
--- NOTE | 2018-12-08 11:28 | NUR ---
PT MANUEL REMOVED. NO S/S OF DISTRESS. PT TOLERATED WELL.
[2018-12-08 11:43] VITALS: BP 153/79
--- NOTE | 2018-12-08 12:15 | NUR ---
PT SITTING IN RECLINER SLEEPING. NO C/O PAIN OR NEEDS. CALL LIGHT IN REACH. WILL CONTINUE TO MONITOR.
[2018-12-08] MEDS ORDERED: CIPROFLOXACN500 MG PO (12:23)
[2018-12-08] MEDS ORDERED: ZALEPLON5 MG PO (12:24)
[2018-12-08 15:33] VITALS: BP 145/74
--- NOTE | 2018-12-08 16:05 | NUR ---
PT SLEEPING IN BED. NO C/O PAIN OR NEEDS. CALL LIGHT IN REACH. WILL CONTINUE TO MONITOR
--- NOTE | 2018-12-08 19:30 | NUR ---
BEDSIDE REPORT RECEIVED FROM ORALIA DEJESUS. PT RESTING IN BED ON LEFT SIDE; ALERT AND ORIENTED. C/O NUMBNESS TO BLE; ELEVATED ON PILLOW AND TRACE EDEMA NOTED. RESPIRATIONS EVEN AND UNLABROED ON ROOM AIR. PLAN OF CARE REVIEWED. PT ENCOURAGED TO VERABLIZE CONCERNS. STATES UNDERSTANDING. SAFETY MEASURES IN PLACE. CALL LIGHT WITHIN REACH.
[2018-12-08 19:45] VITALS: BP 162/90
--- NOTE | 2018-12-08 20:25 | NUR ---
PT ASSITED TO BSC FOR EXTRA LARGE HARD/FORMED BOWEL MOVEMENT. BACK IN BED AND FAMILY AT BEDSIDE.
--- NOTE | 2018-12-09 | NUR ---
PT FREQUENTLY INCONTINENT OF URINE; ASSISTED WITH HYGIENE. IV SITE TO LAC SHOWED POSSIBLE SIGNS OF INFILTRATION; NEW SITE PLACED TO RAC. IV FLUIDS INFUSING WITHOUT DIFFICULY. CURRENTLY RESTING IN BED WITH EYES CLOSED. ONE PERSON ASSIST TO BSC. USES CALL LIGHT PRN FOR ASSISTANCE. SAFETY MEASURES IN PLACE. CALL LIGHT WITHIN REACH.
[2018-12-09 00:43] VITALS: BP 146/84
[2018-12-09 03:48] VITALS: BP 136/74
--- NOTE | 2018-12-09 05:06 | NUR ---
PT AWAKENS SPONTANEOUSLY FOR VS. NO REQUESTS OR CONCERNS AT THIS TIME. NO ACUTE CHANGES IN CONDITION THROUGHOUT THE NIGHT. CALL LIGHT WITHIN REACH.
--- NOTE | 2018-12-09 05:32 | NUR ---
AM MEDICATIONS GIVEN. PT C/O GENERALIZED BODY ACHES, BUT DECLINES TYLENOL.
--- NOTE | 2018-12-09 07:21 | NUR ---
REPORT RECEIVED FROM ERMELINDA REDDING; PT GETTING WASHED UP BY DIALYSIS EQUIPMENT TECHNICIAN; CALL LUIS IN REACH;.
--- NOTE | 2018-12-09 09:08 | NUR ---
ASSESSMENT COMPLETED; FAMILY AT BEDSIDE; PT SITTING UP IN BED WATCHING TV AND VISITING WITH HER SON; RESP EVEN AND UNLABORED; LEFT EYE LOOKS PUFFY UNDERNEATH; C/O OF NUMBNESS BILAT HANDS; LUNGS SOUND WHEEZING; ABD SOFT, DISTENDED, BM 2/1; 1+ EDEMA BLE; REFUSE TO ELEVATE IT, SAYS "LEGS FEELS FINE RIGHT NOW", TELE IN PLACE; IV #22 RAC, ROCEPHEN INFUSING, SITE APPEARS HEALTHY; CALL SMITH IN REACH, SAFETY PRECAUTION REINFORCE;
--- NOTE | 2018-12-09 11:14 | NUR ---
REPORT GIVEN TO ERMELINDA HANNA [facility];
[2018-12-09 12:04] VITALS: BP 147/81
--- NOTE | 2018-12-09 12:04 | NUR ---
PT SITTING UP IN W/C IN HER ROOM, WAITNG FOR HER RIDE; PT AWARE SHE'S GOING TO REHAB IN ; IV REMOVED, CATH TIP INTACT; SITE APPEARS HEALTHY; ALL BELONGINS WITH PT.
--- NOTE | 2018-12-09 12:34 | NUR ---
Discharge instructions given. Patient verbalizes understanding of same. Discharged in stable condition via Wheel[facility] to [facility] with family. All belongings sent with pt.
== END 2018-12-09 12:34 | DRG 557 ==
LOC: ED 11:21 → ED-I 13:00 → ED 13:14 → ICU 13:15 → MS2 12-06 13:18
PROVIDERS: Emergency Medicine; Internal Medicine Nephrology; ADMIT Internal Medicine; ATTEND Internal Medicine
DX: M62.82 Rhabdomyolysis (principal); G93.41 Metabolic encephalopathy; N17.9 Acute kidney failure, unspecified; N39.0 Urinary tract infection, site not specified; I12.9 Hypertensive chronic kidney disease with stage 1 through stage 4 chronic kidney disease, or unspecified chronic kidney disease; N18.3 Chronic kidney disease, stage 3 (moderate); E86.0 Dehydration; G40.909 Epilepsy, unspecified, not intractable, without status epilepticus; E03.9 Hypothyroidism, unspecified; E78.5 Hyperlipidemia, unspecified; E55.9 Vitamin D deficiency, unspecified; I08.3 Combined rheumatic disorders of mitral, aortic and tricuspid valves; B96.1 Klebsiella pneumoniae [K. pneumoniae] as the cause of diseases classified elsewhere; T68.XXXA Hypothermia, initial encounter; X31.XXXA Exposure to excessive natural cold, initial encounter; Z79.899 Other long term (current) drug therapy; Z90.5 Acquired absence of kidney; Z85.528 Personal history of other malignant neoplasm of kidney

== ENCOUNTER 2019-08-09 08:29 | Day surgery (SDC) | payer MEDICARE ==
[~2019-08-09 08:29] MED LIST changes: +MELATONIN5 M3 PO; +ZALEPLON5 MG PO
[2019-08-09 11:06] VITALS: BP 169/73
== END 2019-08-09 09:15 | disposition home or self-care (01) ==
LOC: ORM 08:29
PROVIDERS: ATTEND Surgery
DX: C50.912 Malignant neoplasm of unspecified site of left female breast (principal); Z85.528 Personal history of other malignant neoplasm of kidney; Z80.3 Family history of malignant neoplasm of breast; Z53.8 Procedure and treatment not carried out for other reasons

== ENCOUNTER 2019-08-14 07:33 | Day surgery (SDC) | payer MEDICARE ==
[~2019-08-14] VITALS: Ht 167.6 cm; Wt 77.1 kg
[2019-08-14] MEDS ORDERED: PERCOCET 5/325M1 TAB PO (12:46)
[2019-08-14 14:02] VITALS: BP 143/78
== END 2019-08-14 13:50 | disposition home or self-care (01) ==
LOC: ORM 07:33
PROVIDERS: ATTEND Surgery
PROC: 0HBU0ZZ Excision of Left Breast, Open Approach (ICD-10-PCS; principal; 2019-08-14)
PROC: 07B60ZX Excision of Left Axillary Lymphatic, Open Approach, Diagnostic (ICD-10-PCS; 2019-08-14)
DX: C50.912 Malignant neoplasm of unspecified site of left female breast (principal); Z80.3 Family history of malignant neoplasm of breast; Z85.528 Personal history of other malignant neoplasm of kidney
CPT/HCPCS: J0131; J1100

== ENCOUNTER 2019-09-25 08:54 | Day surgery (SDC) | payer MEDICARE ==
[~2019-09-25] VITALS: Ht 167.6 cm; Wt 81.2 kg
[2019-09-25] MEDS ORDERED: TRAMADOL HCL50 MG PO (11:39)
[2019-09-25 11:53] VITALS: BP 130/62
== END 2019-09-25 12:30 | disposition home or self-care (01) ==
LOC: ORM 08:54
PROVIDERS: ATTEND Surgery
PROC: 0HBU0ZZ Excision of Left Breast, Open Approach (ICD-10-PCS; principal; 2019-09-25)
DX: C50.912 Malignant neoplasm of unspecified site of left female breast (principal)
CPT/HCPCS: J0131; J1100

== ENCOUNTER 2019-12-31 17:20 | Observation (INO) | payer MEDICARE ==
[~2019-12-31] VITALS: Ht 167.6 cm; Wt 80.4 kg
[~2019-12-31 17:20] MED LIST changes: +TRAMADOL HCL50 MG PO
[2019-12-31 19:01] LABS: URINE BILIRUBIN - DIPSTICK NEGATIVE (NEGATIVE); URINE BLOOD DIPSTICK MODERATE (NEGATIVE); URINE COLOR YELLOW; URINE GLUCOSE - DIPSTICK NEGATIVE (NEGATIVE); URINE KETONE NEGATIVE (NEGATIVE); URINE LEUK ESTERASE NEGATIVE (NEGATIVE); URINE NITRITE - DIPSTICK NEGATIVE (Negative); URINE PROTEIN - DIPSTICK NEGATIVE (NEG-TRACE); URINE SPECIFIC GRAVITY 1.015; URINE UROBILINOGEN - DIPSTICK 0.2 E.U./dL (0.2)
[2019-12-31 19:15] LABS: URINE SQUAMOUS EPITHELIAL CELL FEW EPI/hpf (0-FEW)
[2019-12-31 20:18] LABS: HEMATOCRIT 33.4 % (37.0-47.0); HEMOGLOBIN 11.1 g/dl (12.0-16.0); IMMATURE GRANULOCYTES 0.2 % (0.0-5.0); MEAN CELL VOLUME 95.7 fL CALC (80.0-100.0); MEAN CORPUSCULAR HGB 31.8 pG CALC (26.0-32.0); MEAN CORPUSCULAR HGB CONC 33.2 g/L CALC (32.0-36.0); NEUT# 2.74 thou/uL (2.00-7.15); RED BLOOD COUNT 3.49 mill/uL (4.20-5.60); RED CELL DISTRI WIDTH 12.5 % (11.5-15.5)
[2019-12-31 20:39] LABS: ANION GAP 11 (6-22 (CALC)); BILIRUBIN, TOTAL 0.3 mg/dL (0.0-1.4); BUN 22 mg/dL (8-23); BUN/CREATININE RATIO 29 (12-20 (CALC)); CARBON DIOXIDE 28 mmol/l (22-30); CHLORIDE 100 mmol/l (95-108); CREATININE 0.8 mg/dL (0.5-1.0); GFR > 60 ML/MIN (>=60 (CALC)); GFR FOR AFR.AMER. > 60 ML/MIN (>=60 (CALC)); POTASSIUM 4.3 mmol/l (3.5-5.1); SGOT/AST 26 u/l (9-36); SODIUM 135 mmol/l (137-146)
[2019-12-31 20:40] LABS: ALBUMIN 3.8 g/dL (3.2-5.0); ALKALINE PHOSPHATASE 104 u/l (38-126)
[2019-12-31 22:41] VITALS: BP 157/76
[2020-01-01 08:00] VITALS: BP 120/72
== END 2020-01-01 11:08 ==
LOC: ED 17:20 → ED-I 22:07 → ED 22:20 → ICU 22:21
PROVIDERS: Family Medicine; ADMIT Internal Medicine; ATTEND Internal Medicine
DX: R55 Syncope and collapse (principal); E78.5 Hyperlipidemia, unspecified; F03.90 Unspecified dementia, unspecified severity, without behavioral disturbance, psychotic disturbance, mood disturbance, and anxiety; G40.909 Epilepsy, unspecified, not intractable, without status epilepticus; Z86.79 Personal history of other diseases of the circulatory system; Z85.3 Personal history of malignant neoplasm of breast

== ENCOUNTER 2020-08-27 12:45 | Inpatient (IN) | payer MEDICARE ==
[~2020-08-27] VITALS: Ht 167.6 cm; Wt 81.0 kg
--- NOTE | 2020-08-27 13:00 | NUR ---
IV STARTED WITHOUT COMPLICATIONS. PT PLACED ON MONITOR. STRAIGHT CATH & URINE OBTAINED WITHOUT DIFFICULTY. BED IN LOW POSITION. IV MEDS TO BE ADMINISTERED.
[2020-08-27 13:06] LABS: HEMATOCRIT 37.2 % (37.0-47.0); HEMOGLOBIN 12.5 g/dl (12.0-16.0); IMMATURE GRANULOCYTES 0.4 % (0.0-5.0); MEAN CELL VOLUME 97.6 fL CALC (80.0-100.0); MEAN CORPUSCULAR HGB 32.8 pG CALC (26.0-32.0); MEAN CORPUSCULAR HGB CONC 33.6 g/dL CAL (32.0-36.0); NEUT# 8.44 thou/uL (2.00-7.15); RED BLOOD COUNT 3.81 mill/uL (4.20-5.60)
[2020-08-27 13:22] LABS: URINE BILIRUBIN - DIPSTICK NEGATIVE (NEGATIVE); URINE BLOOD DIPSTICK SMALL (NEGATIVE); URINE COLOR YELLOW; URINE GLUCOSE - DIPSTICK NEGATIVE (NEGATIVE); URINE KETONE NEGATIVE (NEGATIVE); URINE PROTEIN - DIPSTICK TRACE mg/dL (NEG-TRACE); URINE SPECIFIC GRAVITY 1.025; URINE UROBILINOGEN - DIPSTICK 0.2 E.U./dL (0.2)
[2020-08-27 13:24] LABS: ALBUMIN 4.2 g/dL (3.2-5.0); ANION GAP 10 (6-22 (CALC)); BILIRUBIN, TOTAL 0.4 mg/dL (0.0-1.4); BUN 28 mg/dL (8-23); BUN/CREATININE RATIO 36 (12-20 (CALC)); CARBON DIOXIDE 29 mmol/l (22-30); CHLORIDE 102 mmol/l (95-108); CREATININE 0.8 mg/dL (0.5-1.0); GFR > 60 ML/MIN (>=60 (CALC)); GFR FOR AFR.AMER. > 60 ML/MIN (>=60 (CALC)); LIPASE 31 u/l (23-300); POTASSIUM 4.5 mmol/l (3.5-5.1); SGOT/AST 42 u/l (9-36); SODIUM 136 mmol/l (137-146); TOTAL PROTEIN 7.5 g/dL (6.3-8.2)
[2020-08-27 13:27] LABS: ALKALINE PHOSPHATASE 167 u/l (38-126)
[2020-08-27 13:31] LABS: URINE LEUK ESTERASE SMALL (NEGATIVE); URINE NITRITE - DIPSTICK POSITIVE (Negative)
[2020-08-27 13:41] LABS: URINE BACTERIA FEW hpf; URINE SQUAMOUS EPITHELIAL CELL MANY EPI/hpf (0-FEW)
--- NOTE | 2020-08-27 14:20 | NUR ---
PT RETURNED TO ROOM FROM RADIOLOGY. EKG COMPLETED. IV MEDS INFUSING WITHOUT COMPLICATIONS. VITALS STABLE ON MONITOR. PT REMAINS ALTERED AND AGITATED.
[2020-08-27 14:53] LABS: ACT PARTIAL THROMBO TIME 20.7 SECONDS (20.0-32.5); PROTHROMBIN TIME 10.2 SECONDS (9.0-12.5)
--- NOTE | 2020-08-27 15:12 | NUR ---
PT RESTING COMFORTABLY IN BED. IV MEDS CONTINUE TO INFUSE WITHOUT COMPLICATIONS. VITALS STABLE ON MONITOR. NO SIGNS OF DISTRESS NOTED.
[2020-08-27] MEDS ORDERED: ANASTROZOLE1 MG PO (15:30)
--- NOTE | 2020-08-27 16:14 | NUR ---
PT RESTING IN BED, IN LOW POSITION. VITALS REMAIN STABLE. CALL LIGHT WITHIN REACH. AWAITING ROOM ASSIGNMENT FOR ADMISSION.
--- NOTE | 2020-08-27 16:40 | NUR ---
REPORT CALLED TO [facility] ON [facility]
[2020-08-27 16:45] VITALS: BP 148/74
--- NOTE | 2020-08-27 16:49 | NUR ---
PT ARRIVED TO [facility] ROOM 266 VIA STRETCHER ACCOMPAINED BY ER STAFF. PT TRANSFERED FROM STRETCHER TO BED WITH LITTLE DIFFICULTY. PT IS A/O TO SELF. ASSESSMENT AND VITALS OBTAINED AT THIS TIME. RESPRIATIONS ARE EVEN AND UNLABORED WITH NO SIGNS OF DISTRESS NOTED. LUNG SOUNDS ARE DIMINISHED. HEART RHYTHM NORMAL WITH TELE IN PLACE. BOWEL SOUNDS ARE ACTIVE IN ALL QUADRANTS, LAST REPORTED BM 08/26/2020. RADIAL AND PEDAL PULSES ARE STRONG WITH NORMAL CAPILLARY REFILL. #20G IN LAC FLUSHED, SITE APPEARS HEALTHY AND PATENT. PT COMPLAINS OF NAUSEA, PT TO BE MEDICATED PER EMAR. WRITTER INFORMED THAT PT HAD FALL AT HOME. ARBASION ON RIGHT FACE AND LEFT ARM. BUTTOCKS APPEARS REDDENED. SKIN IS WARM AND DRY WITH MULTIPLE SMALL ABRASIONS. PT DENIES OF ANY OTHER PAINS OR DISCOMFORTS AT THIS TIME. PT DENIES ANY ALLERGIES, ALLERGY OF CODEINE. ALLERGY BAND AND FALL RISK BAND APPLIED. PT ORIENTED TO ROOM AND CALL LIGHT SYSTEM. ALL SAFETY PRECAUTIONS ARE IN PLACE WITH CALL LIGHT AND BED ALARM ACTIVATED. WILL CONTINUE TO MONITOR
[2020-08-27 19:00] VITALS: BP 124/58
--- NOTE | 2020-08-27 20:00 | NUR ---
PATIENT ALERT, VERBAL WITH CONFUSION, ABLE TO MAKE NEEDS KNOWN. TOLERATES MEDS WELL WHOLE. INC OF BOWEL AND BLADDER WITH CARE PROVIDED PRN. 1-ASSIST WITH ALL ADLS AND TRANSFERS. NO APPARENT DISTRESS NOTED. SAFETY PRECAUTIONS--LOW BED/ BED ALARM--IN PLACE RELATED TO POOR SAFETY AWARENESS. REMAINS ON AIRBORNE CONTACT PRECAUTIONS WELL. NO C/OS OF NAUSEA AND VOMITING. PIV SITE PATENT TO LEFT AC--FLUSHES WELL-SITE UNREMARKABLE. TELEMETRY IN PLACE--SR @ 79. WILL CONT TO MONITOR FOR ANY FURTHER CHANGES.
--- NOTE | 2020-08-27 20:03 | NUR ---
CRITICAL TROPONIN CALLED AT THIS TIME FROM LAB FOR 0.454--CALLED RESULTS TO SENIOR TRAINER MUSEUM REGISTRAR SHELLY BRUNER--NO NEW ORDERS VERBALLY GIVEN AT THIS TIME.
[2020-08-28] VITALS: BP 98/48
--- NOTE | 2020-08-28 | NUR ---
PATIENT RESTING SOUNDLY IN BED WITH EYES CLOSED AT THIS TIME. MONITOR REMAINS IN PLACE WELL SAFETY PRECAUTIONS--LOW BED--RELATED TO POOR SAFETY AWARENESS. PIV SITE PATENT TO LEFT AC--FLUSHES WELL--SITE UNREMARKABLE. PATIENT BECOMES AGITATED EXTREMELY EASY--EASILY REDIRECTED--12AM TROPONIN PENDING AT THIS TIME. AIRBORNE CONTACT PRECAUTIONS IN PLACE. WILL CONT TO MONITOR FOR ANY FURTHER CHANGES.
--- NOTE | 2020-08-28 01:25 | NUR ---
CALL RECEIVED FORM LAB WITH CRITICAL TROPONIN OF 0.575--CALLED TO RAMP SERVICE AGENT SENIOR INSIGHT MANAGER--ZOHREH--WHO INPUTTED NEW ORDERS FOR EKG NOW--RESPIRATORY AND STABLE ATTENDANT BOTH NOTIFIED.
--- NOTE | 2020-08-28 02:01 | NUR ---
EKG DONE AT THIS TIME--NO CHANGES NOTED--SCANNED AND SENT TO MD PER RT--NO CALL MADE AT THIS TIME.
[2020-08-28 03:56] VITALS: BP 105/51
--- NOTE | 2020-08-28 04:00 | NUR ---
PATIENT RESTING SOUNDLY IN BED WITH EYES CLOSED FOR MOST OF THE NIGHT--AWAKE AT THIS TIME--CALLING NURSES' STATION ASKING FOR HER GRANDAUGHTER--ATTEMPTING TO EXPLAIN TO HER THE TIME WITHOUT SUCCESS--MONITOR REMAINS IN PLACE--SAFETY PRECAUTIONS IN PLACE RELATED TO POOR SAFETY AWARENESS--LOW BED/BED ALARM. PIV SITE PATENT TO LEFT AC--FLUSHES WELL--SITE UNREMARKABLE--MULTIPLE ATTEMPTS MADE TO PULL LINE OUT THIS SHIFT--REDIRECTION PROVIDED. TELEMETRY IN PLACE WITH SR @ 71. AIRBORNE CONTACT PRECAUTIONS IN PLACE WELL. WILL CONT TO MONITOR FOR ANY FURTHER CHANGES.
[2020-08-28 05:48] LABS: HEMATOCRIT 33.6 % (37.0-47.0); HEMOGLOBIN 11.1 g/dl (12.0-16.0); IMMATURE GRANULOCYTES 0.3 % (0.0-5.0); MEAN CORPUSCULAR HGB 32.4 pG CALC (26.0-32.0); NEUT# 6.25 thou/uL (2.00-7.15); RED BLOOD COUNT 3.43 mill/uL (4.20-5.60); RED CELL DISTRI WIDTH 13.1 % (11.5-15.5)
[2020-08-28 06:14] LABS: ALKALINE PHOSPHATASE 113 u/l (38-126); ANION GAP 5 (6-22 (CALC)); BILIRUBIN, TOTAL 0.4 mg/dL (0.0-1.4); BUN 22 mg/dL (8-23); BUN/CREATININE RATIO 27 (12-20 (CALC)); CARBON DIOXIDE 28 mmol/l (22-30); CHLORIDE 105 mmol/l (95-108); CHOLESTEROL HDL RATIO 3.8 (<4.4 (CALC)); CREATININE 0.8 mg/dL (0.5-1.0); GFR > 60 ML/MIN (>=60 (CALC)); GFR FOR AFR.AMER. > 60 ML/MIN (>=60 (CALC)); HDL CHOLESTEROL 62 mg/dL (>=40); MAGNESIUM 1.8 mg/dL (1.6-2.3); SGOT/AST 38 u/l (9-36); SODIUM 134 mmol/l (137-146); TOTAL PROTEIN 6.1 g/dL (6.3-8.2); TOTAL TRIGLYCERIDES 76 mg/dl (30-149); VLDL CHOLESTROL 15 mg/dl (0-48 (CALC))
[2020-08-28 06:15] LABS: ALBUMIN 3.2 g/dL (3.2-5.0); CALCULATED LDLCHOLESTEROL 161 mg/dL (62-129 (CALC)); TOTAL CHOLESTEROL 238 mg/dl (0-199)
--- NOTE | 2020-08-28 06:25 | NUR ---
TROPONIN LEVEL FOR THE 6AM DRAW @ 0.428--CALLED RESULTS TO ANN BRUNER--NO ANSWER--VOICEMAIL LEFT.
--- NOTE | 2020-08-28 07:42 | NUR ---
PT note Patient is screened for PT and OT intervention. She would benefit from PT and OT referral if agreed by medical
--- NOTE | 2020-08-28 08:27 | NUR ---
DR HUSSEIN AT BEDSIDE DISCUSSING POC WITH PT.
[2020-08-28 08:28] VITALS: BP 126/66
--- NOTE | 2020-08-28 08:28 | NUR ---
RECIEVED REPORT FROM ORALIA PIZARRO. PT RESTING IN SEMI FOWLERS POSITION UPON ENTERING ROOM. INTRODUCED SELF TO PT AND DISCUSSED POC. PT IS A/O TO SELF. ASSESSMENT AND VITALS OBTAINED AT THIS TIME. BP 126/66, HR 68, O2 94% ON ROOM AIR. RESPIRATIONS ARE EVEN AND UNLABORED WITH NO SIGNS OF DISTRESS NOTED. LUNG SOUNDS ARE DIMINISHED. HEART RYTHM IS NORMAL WITH TELE IN PLACE. BOWEL SOUNDS ARE ACTIVE IN ALL QUADRANTS, LAST REPORTED BM 08/26/2020. #20G IN LAC FLUSHED, SITE APPEARS HEALTHY AND PATENT. PT HAS ABRASION TO RIGHT CHEECK AND LEFT ELBOW FROM PREVIOUS FALL. BUTTOCKS APPEARS REDDENED. PT DENIES ANY PAIN OR DISCOMFORTS AT THIS TIME. ALL SAFTEY AND ISOLATION PRECAUTIONS ARE IN PLACE WITH BEDALARM ACTIVATED. ALL SAEFTY PRECAUTIONS ARE IN PLACE WITH CALL LIGHT IN REACH. WILL CONTINUE TO MONITOR
[2020-08-28 10:30] VITALS: BP 127/73
--- NOTE | 2020-08-28 12:08 | NUR ---
WRITTER INFORMED OF TROPINION OF 0.272. ERASTO SMITH NOTFIED
--- NOTE | 2020-08-28 12:58 | NUR ---
WRITTER CALLED STATING PT REMOVED CATHATER. #20G IN LAC REMOVED WITH CATHATER STILL INTACT. #20G IN RAC STARTED, SITE APPEARS HEALTHY AND PATENT. PT TOELRATED WELL. PT COMPLAINS OF LEGS AND HANDS FEELING NUMB. PT REQUEST [employer]URKEY SANDWHICH FOR LUNCH. DIETARY CALLED.PT APPEARS TO BE MORE ALERT AT THIS TIME. PT DENIES ANY OTHER NEEDS OR DISCOMFORTS AT THIS TIME. ALL SAFETY AND ISOLATION PRECAUTIONS ARE IN PLACE WITH CALL LIGHT IN REACH AND BED ALARM ACTIVATED . WILL CONTINUE TO MONITOR
--- NOTE | 2020-08-28 13:30 | NUR ---
X RAY AT BEDSIDE AT THIS TIME
--- NOTE | 2020-08-28 13:41 | NUR ---
PT AT BEDSIDE WORKING WITH PT
[2020-08-28 15:00] VITALS: BP 153/79
--- NOTE | 2020-08-28 15:18 | NUR ---
PT APPEARS TO BE RESTLESS. PT COMPLAINS OF PAIN IN BLE. XANAX ADMINISTERED. RESPIRATIONS ARE EVEN AND UNLABORED WITH NO SIGNS OF DISTRESS NOTED.ALL SAFETY PECAUTIONSA RE IN PLACE WITH CALL LIGHT IN REACH. WILL CONTINUE TO MONITOR
--- NOTE | 2020-08-28 16:17 | NUR ---
PT RESTING IN SEMI FOWLERS POSITION.PT IS A/O X1. RESPIRATIONS ARE EVEN AND UNLABORED WITH NO SIGNS OF DISRTESS NOTED. PT DENIES OF ANY PAIN OR DISCOMFORTS AT THIS TIME.ALL SAFETY PRECAUTIONS ARE IN PLACE WITH CALL LIGHT IN REACH AND BED ALARM ACTIVE. WILL CONTINUE TO MONITOR.
--- NOTE | 2020-08-28 20:00 | NUR ---
PATIENT ALERT, VERBAL WITH CONFUSION, ABLE TO MAKE NEEDS KNOWN--ABLE TO TOLERATE MEDS WELL WHOLE. INC OF BOWEL AND BLADDER WITH CARE PROVIDED PRN. ONE PERSON ASSIST WITH ALL ADLS/TRANSFERS/TOILETING. PATIENT EXTREMELY RESTLESS AND ON THE CALL LIGHT CONSTANTLY ALL SHIFT THUS FAR. MEDICATED WITH PRN TYLENOL FOR COMFORT AND SONATA TO AID IN HELPING HER RELAX AND REST THROUGHOUT THE NIGHT--INEFFECTIVE--REQUIRES CONSTANT REDIRECTION AND REMINDERS OF WHERE SHE IS AT AND WHY SHE IS HERE. PATIENT IS EASILY AGITATED AND NOT EASILY REDIRECTED. REMAINS ON AIRBORNE CONTACT PRECAUTIONS WELL. NO RESP SYMPTOMS NOTED--AFEBRILE. CONT TO C/O NUMBNESS IN NICOLAS HANDS AND LEGS THAT MD FEELS IS A SIDE EFFECT OF HER DILANTIN. PIV SITE PATENT TO RIGHT AC--FLUSHES WELL--SITE UNREMARKABLE--MULTIPLE ATTEMPTS MADE TO DISLODGE THE IV SITE THIS SHIFT--MULTIPLE EPISODES OF RE-ORIENTATION REQUIRED WITH MINIMAL EFFECT. CONT ON IV ABT THERAPY RELATED TO UTI WITH NO SIDE EFFECTS NOTED--AFEBRILE. TELEMETRY IN PLACE WITH SR @ 76. REPEATEDLY REMOVING PADDING TO SIDERAILS AND ALL HER DRSGS TO HER ARMS--REPLACED TIMES 2 THIS SHIFT--CONTINUES TO REMOVE THEM. WILL CONT TO MONITOR FOR ANY FURTHER CHANGES.
[2020-08-28 20:15] VITALS: BP 150/86
--- NOTE | 2020-08-29 | NUR ---
PATIENT CONTINUES TO BE EXTREMELY ANXIOUS/RESTLESS DESPITE HS MEDICATION--IN SOME WAYS PATIENT'S BEHAVIOR APPEARS TO HAVE ESCALATED. CONTINUES TO CONFABULATE OUTLANDISH STORIES OF HER PETS AND HER PARENTS, ETC. DESPITE ANY REDIRECTION PROVIDED BY THIS GLASS BEVELER. WOUND CARE COORDINATOR MD CONTACTED FOR FURTHER INSTRUCTIONS--NEW ORDERS FOR ATIVAN 0.5MG IV TIMES 1 NOW WITH ORDERS TO REPEAT IN 30 MINS IF NEEDED--ADMINISTERED MEDICATION--MODERATELY EFFECTIVE. PATIENT CONTINUES TO BE SLIGHTLY RESTLESS--UP ROAMING AROUND ROOM, IN AND OUT OF BATHROOM, IN DONING UP ROOM OUTSIDE OF NEGATIVE PRESSURE ROOM, OPENING AND CLOSING DOOR TO HER ROOM, ACTIVATING ALARM TO DOOR ON SEVERAL OCCASSIONS--REMOVED BANDAGES ONCE AGAIN. SPOKE WITH MILTON TIRADO RE: CONDITION--SHE EXPRESSED HER CONCERNS FOR THE FACT THAT HER MIND WAS GETTING WORSE EVERYDAY--THIS GLASS BEVELER EXPLAINED TO FAMILY THAT THIS WAS ALL PART OF THE PROCESS OF THE PROGRESSION OF DEMENTIA AND ALZHEIMERS--VOICED HER UNDERSTANDING, DESPITE HER DISCOURAGEMENT WITH THE SITUATION. PIV SITE REMAINS PATENT TO RIGHT AC--FLUSHES WELL--SITE UNREMARKABLE. REMAINS ON AIRBORNE CONTACT PRECAUTIONS WELL. WILL CONT TO MONITOR FOR ANY FURTHER CHANGES.
[2020-08-29 00:29] VITALS: BP 172/92
--- NOTE | 2020-08-29 04:00 | NUR ---
PATIENT CONTINUES TO REMAIN RESTLESS--ROAMING AROUND ROOM--IN AND OUT OF DOOR TO HER ROOM--PACKING AND UNPACKING HER THINGS--DRESSING AND UNDRESSING HERSELF--EXTREMELY UNSTEADY--TRIED REDIRECTION WITHOUT SUCCESS. PATIENT REFUSING TO WEAR COLLATERAL ANALYST--PULLS LEADS OFF EVERYTIME PLACED BACK ON. STARTING TO PICK AT HER IV SITE--ONCE AGAIN REDIRECTED WITHOUT SUCCESS--PATIENT SHANTEL BECOMES AGITATED WITH STAFF. AIRBORNE CONTACT PRECAUTIONS REMAIN IN PLACE. WILL CONT TO MONITOR FOR ANY FURTHER CHANGES.
[2020-08-29 05:42] LABS: HEMATOCRIT 36.1 % (37.0-47.0); MEAN CELL VOLUME 98.4 fL CALC (80.0-100.0); MEAN CORPUSCULAR HGB 32.7 pG CALC (26.0-32.0); MEAN CORPUSCULAR HGB CONC 33.2 g/dL CAL (32.0-36.0); RED BLOOD COUNT 3.67 mill/uL (4.20-5.60); RED CELL DISTRI WIDTH 12.8 % (11.5-15.5)
[2020-08-29 05:57] LABS: ANION GAP 11 (6-22 (CALC)); BUN 20 mg/dL (8-23); BUN/CREATININE RATIO 27 (12-20 (CALC)); CARBON DIOXIDE 26 mmol/l (22-30); CHLORIDE 102 mmol/l (95-108); CREATININE 0.7 mg/dL (0.5-1.0); GFR > 60 ML/MIN (>=60 (CALC)); GFR FOR AFR.AMER. > 60 ML/MIN (>=60 (CALC)); MAGNESIUM 1.7 mg/dL (1.6-2.3); POTASSIUM 4.5 mmol/l (3.5-5.1); SODIUM 134 mmol/l (137-146)
--- NOTE | 2020-08-29 06:21 | NUR ---
RESULTS RECEIVED FROM 6AM TROPONIN--0.397--CRITICAL--RESULTS CALLED TO ASSEMBLER GOLD FRAME MD HUSSEIN--VOICEMAIL LEFT.
[2020-08-29 08:15] VITALS: BP 145/71
--- NOTE | 2020-08-29 08:15 | NUR ---
ASSESSMENT IS COMPLETED: IV SITE IS FREE FROM REDNESS OR EDEMA. HR IS REG,PULSES ARE STRONG X4,ABD IS SOFT WITH ACTIVE BS. BREATH SOUNDS ARE CLEAR AND DIMINISHED,BILATERALLY,TELE MONITOR ON TEMPORARILY, DRESSED THE LEFT ELBOW WITH NON ADHERENT AND WRAPPED WITH DARRYL. PT TOLERATED WELL.
[2020-08-29 10:30] VITALS: BP 171/82
--- NOTE | 2020-08-29 11:21 | NUR ---
MOVING PT TO ROOM 270
--- NOTE | 2020-08-29 11:30 | NUR ---
DRESSING WAS REMOVED BY ARPN. THE LEFT ARM HAS A SCAB, PT LIKE TO MESS WITH IT. CONTINUE TO OSBERVE AND MONITOR.
--- NOTE | 2020-08-29 12:30 | NUR ---
PT TELE MONITOR HAS BEEN DISCONTINUED
--- NOTE | 2020-08-29 13:03 | NUR ---
PT INSIST ON GETTING OUT OF BED., BED ALARM IN PLACE AND REDIRECTED BY STAFF. HAD A SITTER THIS AM. DUE TO AMBULATING ALL NIGHT.
--- NOTE | 2020-08-29 13:30 | NUR ---
PT BEING ARGUMENTATIVE.AND NOT WANTING TO BE REDIRECTED. INSTRUCTED PT TO SIT ON THE BED. DUE TO C/O PAIN IN HER LEFT LEG/. SHE RUBS IT THEN CONTINUES ON.
--- NOTE | 2020-08-29 14:00 | NUR ---
PT HAS BEEN SCREAMING AT STAFF, NOT WANTING TO STAY IN BED OR ON THE COUCH. WANTING TO TAKE CARE OF LEGAL THINGS. PT IS WORRIED ABOUT HER DOGS. WILL ATTEMPT TO REACH FAMILY.
--- NOTE | 2020-08-29 14:30 | NUR ---
PT SPOKE TO GRANDDAUGHTER ON THE PHONE. AND WAS ASSURED OF FAMILY HAVING HER DOGS. PT STATED" OK THEN I WILL STAY TONIGHT". ENCOURAGED PT TO GO TO BED,DUE TO LEG HURTING. WILL SIT IN THE CHAIR FOR NOW.
[2020-08-29 15:00] VITALS: BP 156/87
--- NOTE | 2020-08-29 16:30 | NUR ---
PT IS BEING WHEELED IN THE WC WITH NO DISTRESS NOTED. IV SITE IS FREE FROM REDNESS OR EDEMA. SITTER IN THE ROOM. ATTEMPTING TO KEEP HER OCCUPIED WITH : CLEANING AND ASSISTING IN BED MAKING.,
--- NOTE | 2020-08-29 16:54 | NUR ---
PT WANTING TO GO HOME. REFUSING TO GO IN THE ROOM. INFORMED OF HER CLOTHES, AND CELL PHONE IN THE ROOM. NOT WANTING TO BE REDIRECTED. PT LIKES TO ARGUE WITH STAFF.
--- NOTE | 2020-08-29 18:16 | NUR ---
GRANDDAUGHTER IN TO SEE PT. PT OS SITTING IN THE WHEELCHAIR IN HER ROOM. SITTER IS PRESENT
--- NOTE | 2020-08-29 20:00 | NUR ---
PATIENT UP IN WHEELCHAIR AT THIS TIME WITH SITTER AT BEDSIDE. AWAKE ALERT AND RESTLESS. AGITATED AT TIMES AND CURSING. PATIENT IS ORIENTED TO PERSON ONLY. HALLUCINATING AND HEARING THINGS. ATTEMPTED TO REORIENT PATIENT WITH LITTLE SUCCESS. PATIENT WITH BRUISE AND ABRASION TO RIGHT CHEEK-HEALTH CARE ADMINISTRATOR LEFT ARM/ELBOW WITH ABRASION SCABBED OVER AT THIS TIME-ABDULLAHI. SALINE LOCK TO RIGHT AC INTACT AND APPEARS HEALTHY AT THIS TIME. PATIENT MEDICATED WITH SEROQUEL AND XANAX ORDERED. SITTER AT BEDSIDE FOR PATIENT SAFETY, CALL LIGHT IN REACH. WILL CONT TO MONITOR.
--- NOTE | 2020-08-29 20:00 | NUR ---
PATIENT STILL UP IN WHEELCHAIR. STILL WITH HALLUCINATIONS AND HEARING THINGS. CONFUSED TO TIME AND PLACE. MEDICATED FOR SLEEP WITH SONATA 5MG PO FOR SLEEP. SITTER REMAINS WITH PATIENT FOR SAFETY. CALL LIGHT IN REACH. WILL CONT TO MONITOR.
[2020-08-29 21:00] VITALS: BP 147/84
--- NOTE | 2020-08-29 21:00 | NUR ---
PATIENT CONT TO BED CONFUSED-STILL IN WHEELCHAIR-REFUSING TO GO TO BED AT THIS TIME. PATIENT BUMPED LEFT ELBOW AND SCAB IS BLEEDING. CLEANSED WITH SALINE AND COVER WITH ADAPTIC AND TELFA. GAUZE WRAP APPLIED AND SECURED WITH SURGIFLEX. SITTER REMAINS WITH PATIENT. STILL RESTLESS-CALL LIGHT IN REACH. WILL CONT TO MONITOR.
--- NOTE | 2020-08-30 00:45 | NUR ---
PATIENT RESTING IN BED AT THIS TIME WITH EYES CLOSED. SITTER AT BEDSIDE FOR PATIENT SAFETY. RESPS ARE EVEN AND UNLABORED. BED ALARM IN PLACE FOR PATIENT SAFETY. CALL LIGHT IN REACH. WILL CONT TO MONITOR.
--- NOTE | 2020-08-30 00:48 | NUR ---
PATIENT UP IN WHEELCHAIR AT THIS TIME-AWAKE ALERT AND RESTLESS, AGITATED AT TIMES AND CURSING. PATIENT IS ORIENTED TO PERSON ONLY. HALLUCINATING AND HEARING THINGS. ATTEMPTED TO REORIENT PATIENT WITH LITTLE SUCCESS. PATIENT WITH BRUISE AND ABRASION TO RIGHT CHEEK-ARBORICULTURE INSTRUCTOR. LEFT ARM/ELBOW WITH ABRASION-SCABBED OVER AT THIS TIME-ABDULLAHI. SALINE LOCK TO RIGHT AC INTACT AND APPEARS HEALTHY AT THIS TIME. PATIENT MEDICATED WITH SEROQUEL AND XANAX ORDERED. PATIENT WITH SITTER AT BEDSIDE FOR PATIENT SAFETY. CALL LIGHT IN REACH. WILL CONT TO MONITOR.
--- NOTE | 2020-08-30 04:30 | NUR ---
PATIENT APPEARS SLEEPING AT THIS TIME WITH EYES CLOSED. RESPS ARE EVEN AND UNLABORED. SALINE LOCK TO RAC INTACT. BED ALARM IN PLACE FOR PATIENT SAFETY. CALL LIGHT IN REACH. WILL CONT TO MONITOR.
[2020-08-30 07:46] LABS: HEMATOCRIT 32.1 % (37.0-47.0); HEMOGLOBIN 10.8 g/dl (12.0-16.0); IMMATURE GRANULOCYTES 0.4 % (0.0-5.0); MEAN CELL VOLUME 97.6 fL CALC (80.0-100.0); MEAN CORPUSCULAR HGB 32.8 pG CALC (26.0-32.0); MEAN CORPUSCULAR HGB CONC 33.6 g/dL CAL (32.0-36.0); NEUT# 4.86 thou/uL (2.00-7.15); RED BLOOD COUNT 3.29 mill/uL (4.20-5.60); RED CELL DISTRI WIDTH 12.9 % (11.5-15.5)
[2020-08-30 08:07] LABS: ALBUMIN 3.4 g/dL (3.2-5.0); ALKALINE PHOSPHATASE 107 u/l (38-126); ANION GAP 11 (6-22 (CALC)); BUN 17 mg/dL (8-23); BUN/CREATININE RATIO 26 (12-20 (CALC)); CARBON DIOXIDE 28 mmol/l (22-30); CHLORIDE 101 mmol/l (95-108); CREATININE 0.7 mg/dL (0.5-1.0); GFR > 60 ML/MIN (>=60 (CALC)); GFR FOR AFR.AMER. > 60 ML/MIN (>=60 (CALC)); POTASSIUM 4.2 mmol/l (3.5-5.1); SGOT/AST 59 u/l (9-36); SODIUM 136 mmol/l (137-146); TOTAL PROTEIN 6.5 g/dL (6.3-8.2)
[2020-08-30 08:10] LABS: BILIRUBIN, TOTAL 0.6 mg/dL (0.0-1.4)
[2020-08-30 08:30] VITALS: BP 152/76
--- NOTE | 2020-08-30 10:54 | NUR ---
PATIENT LEAVING FLOOR FOR SURGERY. DR MASTERSON EXPLAINED PROCEDURE TO PATIENT AND . CONSENTS ARE SIGNED AND UNDERSTOOD. EXPLORATORY LAPAROSCOPY, POSSIBLE LAPARECTOMY.
--- NOTE | 2020-08-30 12:45 | NUR ---
PATIENT STATES THAT SHE IS AGREEABLE TO DISCHRGE TO A ASSISTED FACILITY. CM WORKING ON PLACEMENT
--- NOTE | 2020-08-30 12:49 | NUR ---
Physical Therapy Note Attempted to see patient for physical therapy. Patient was sleeping soundly. Physical therapy rescheduled.
--- NOTE | 2020-08-30 13:59 | NUR ---
LIZ SITTING IN BEDSIDE CHAIR WITH FAMILY AT BEDSIDE. IV ABX STARTED
[2020-08-30 15:00] VITALS: BP 104/50
[2020-08-30 19:00] VITALS: BP 127/77
--- NOTE | 2020-08-30 19:30 | NUR ---
PATIENT SITTING UP IN RECLINER WITH SITTER AT BEDSIDE. PATIENT IS MORE ALERT TONIGHT. PATIENT ORIENTED TO PERSON, PLACE AND MONTH OF THE YEAR. NO HALLUCINATIONS OR NOISES LIKE LAST NIGHT. SALINE LOCK TO RAC INTACT AND APPEARS HEALTHY AT THIS TIME. CALL LIGHT IN REACH. WILL CONT TO MONITOR.
--- NOTE | 2020-08-30 20:30 | NUR ---
PATIENT REMAINS UP IN RECLINER- MEDICATIONS WERE GIVEN. PATIENT MEDICATED WITH MOM 30CC AND MIRALAX 1 PACKET FOR CONSTIPATION. PATIENT MEDICATED FOR LEFT GROIN AND LEG PAIN WITH TYLENOL 650MG PO. PATIENT IS SLIGHTLY AGITATED/ANXIOUS-MEDICATED WITH XANAX 0.25MG PO ORDERED. SITTER REMAINS AT BEDSIDE FOR PATIENT SAFETY. CALL LIGHT IN REACH. WILL CONT TO MONITOR.
--- NOTE | 2020-08-30 22:16 | NUR ---
PATIENT CONT TO C/O PAIN TO LEFT GROIN AND LEG-MAX ASSIST BACK TO BED. PATIENT INCONT OF MODERATE AMT OF URINE. LUCHO-CARE WAS DONE. LARGE ECCYMOTIC AREA NOTED TO LEFT LOWER ABD/PELVIC AREA. PATIENT MEDICATED WITH SONATA 5MG PPO FOR SLEEP. SITTER REMAINS AT BEDSIDE FOR PATIENT SAFETY. BED ALARM IN PLACE FOR PATIENT SAFETY. CALL LIGHT IN REACH. WILL CONT TO MONITOR.
--- NOTE | 2020-08-31 01:52 | NUR ---
PATIENT POSITIONED ON LEFT SIDE WITH HER EYES CLOSED. RESPS ARE EVEN AND UNLABORED. SITTER AT BEDSIDE FOR PATIENT SAFETY. SIDERAILS PADDED FOR SEIZURE PRECAUTIONS. CALL LIGHT IN REACH. WILL CONT TO MONITOR.
--- NOTE | 2020-08-31 03:30 | NUR ---
PATIENT RESTING IN BED-C/O SEVERE LOW BACK, LEFT GROIN AND HIP PAIN-MEDICATED WITH TYLENOL 650MG PO. PUREWICK REMOVED BY PATIENT AND STATES THAT SHE DOESN'T WANT IT. SITTER REMAINS AT BEDSIDE. BED ALARM IN PLACE FOR PATIENT SAFETY. SIDERAILS PADDED FOR SEIZURE PRECAUTIONS. CALL LIGHT IN REACH. WILL CONT TO MONITOR.
[2020-08-31 05:40] VITALS: BP 104/52
[2020-08-31 05:52] LABS: HEMATOCRIT 28.6 % (37.0-47.0); HEMOGLOBIN 9.4 g/dl (12.0-16.0); MEAN CORPUSCULAR HGB 32.5 pG CALC (26.0-32.0); MEAN CORPUSCULAR HGB CONC 32.9 g/dL CAL (32.0-36.0); RED BLOOD COUNT 2.89 mill/uL (4.20-5.60); RED CELL DISTRI WIDTH 13.1 % (11.5-15.5)
[2020-08-31 06:09] LABS: ANION GAP 6 (6-22 (CALC)); BUN 19 mg/dL (8-23); BUN/CREATININE RATIO 31 (12-20 (CALC)); CARBON DIOXIDE 30 mmol/l (22-30); CHLORIDE 103 mmol/l (95-108); CREATININE 0.6 mg/dL (0.5-1.0); GFR > 60 ML/MIN (>=60 (CALC)); GFR FOR AFR.AMER. > 60 ML/MIN (>=60 (CALC)); MAGNESIUM 1.8 mg/dL (1.6-2.3); POTASSIUM 4.4 mmol/l (3.5-5.1); SODIUM 133 mmol/l (137-146)
--- NOTE | 2020-08-31 07:36 | NUR ---
PT SLEEPING IN BED WITH SITTER AT BEDSIDE. RESP EVEN AND UNLABORED. NO DISTRESS NOTED. SIDE RAILS PADDED FOR SEIZURE PRECAUTIONS. WILL CONTINUE TO MONITOR.
[2020-08-31 09:26] VITALS: BP 131/72
--- NOTE | 2020-08-31 09:26 | NUR ---
PT LAYING IN BED. A&O X3 (CURRENT MONTH), SITTER AT BEDSIDE. PT C/O OF GENERALIZED PAIN, WITH GREATER PAIN FELT IN LEFT GROIN. D CARTEE NOTIFIED. TYLENOL GIVEN FOR PAIN. PERICARE PROVIDED. ASSESSMENT COMPLETED. DISCUSSED POC. CALL LIGHT IN REACH. CONTINUE TO MONITOR.
--- NOTE | 2020-08-31 14:19 | NUR ---
PT LAYING IN BED. SITTER AT BEDSIDE. C/O OF NAUSEA, ZOFRAN GIVEN. HELPED PT REPOSITION IN BED FOR COMFORT. PT C/O OF LT ELBOW PAIN AND LT KNEE PAIN. WARM PACK PROVIDED. CALL LIGHT IN REACH. CONTINUE TO MONITOR.
--- NOTE | 2020-08-31 15:43 | NUR ---
PT C/O GENERALIZED PAIN MAINLY IN LT HIP. PT SLIGHTLY ANXIOUS, PRN DOSE OF ATIVAN GIVEN. PT TOLERATED PO MEDICATIONS WELL. CONTINUE TO MONITOR.
[2020-08-31 16:30] VITALS: BP 120/83
[2020-08-31 18:30] VITALS: BP 156/74
--- NOTE | 2020-08-31 19:00 | NUR ---
REPORT RECEIVED FROM Augustus BARRIOS RN, CARE OF PT ASSUMED AT THIS TIME.
--- NOTE | 2020-08-31 20:00 | NUR ---
PT YELLING OUT "HELP", CHECKED ON PT AND PT REPORTS PAIN TO BUE AND BLE. PT MEDICATED WITH APAP FOR PAIN. SEE E-MAR FOR ADMINISTRATION OF SCHEDULED AND PRN MEDICATIONS. PHYSICAL ASSESMENT COMPLETE. PT SEEMS AGITATED. Timothy SINGLETON AT BEDSIDE 1:1 SITTER. CALL SMITH WITHIN REACH, PT AGREES TO CALL PRN.
--- NOTE | 2020-08-31 23:30 | NUR ---
RETURNED CALL TO FAMILY MEMBER CANDIDA, APPROPRIATE COMMUNICATION CODE PROVIDED BY CANDIDA. PLAN OF CARE REVIEWED AND QUESTIONS ANSWERED.
--- NOTE | 2020-09-01 02:45 | NUR ---
PT APPEARS TO BE SLEEPING COMFORTABLY, RESPIRATIONS REGULAR AND UNLABORED, NO APPARENT DISTRESS, EYES CLOSED. Timothy ANDREWSADS AT BEDSIDE 1:1 SITTER, CALL SMITH REMAINS WITHIN REACH.
[2020-09-01 03:49] VITALS: BP 149/86
[2020-09-01 04:48] LABS: HEMATOCRIT 28.6 % (37.0-47.0); HEMOGLOBIN 9.3 g/dl (12.0-16.0); MEAN CELL VOLUME 100.7 fL CALC (80.0-100.0); MEAN CORPUSCULAR HGB 32.7 pG CALC (26.0-32.0); MEAN CORPUSCULAR HGB CONC 32.5 g/dL CAL (32.0-36.0); RED BLOOD COUNT 2.84 mill/uL (4.20-5.60)
[2020-09-01 05:01] LABS: ANION GAP 11 (6-22 (CALC)); BUN 16 mg/dL (8-23); BUN/CREATININE RATIO 22 (12-20 (CALC)); CARBON DIOXIDE 26 mmol/l (22-30); CHLORIDE 103 mmol/l (95-108); CREATININE 0.7 mg/dL (0.5-1.0); GFR > 60 ML/MIN (>=60 (CALC)); GFR FOR AFR.AMER. > 60 ML/MIN (>=60 (CALC)); POTASSIUM 4.1 mmol/l (3.5-5.1); SODIUM 136 mmol/l (137-146)
--- NOTE | 2020-09-01 07:02 | NUR ---
REPORT RECEIVED FROM ERMELINDA MATA. PT RESTING IN BED. NO S/S OF DISTRESS AT THIS TIME. SAFETY PRECAUTIONS IN PLACE. WILL CONTINUE TO MONITOR.
[2020-09-01 07:44] VITALS: BP 119/44
--- NOTE | 2020-09-01 07:44 | NUR ---
PT RESTING IN BED, WITH HER EYES CLOSED, PT EASILY AROUSED. PT IS ALERT AND ORIENTED. RESPIRATIONS ARE EVEN AND UNLABORED ON RA. LUNGS SOUND CLEAR. PEDAL PULSES ARE STRONG. PT REPORTS MILD PAIN IN HER RIGHT SHOULDER, PLACED A WARM BLANKET ON PT SHOULDER PER REQUEST. SAFETY PRECAUTIONS IN PLACE. WILL CONTINUE TO MONITOR.
[2020-09-01] MEDS ORDERED: ASPIRIN CHEWABL81 MG PO (10:26)
[2020-09-01] MEDS ORDERED: QUETIAPINE FUMA25 MG PO (10:26)
[2020-09-01] MEDS ORDERED: LIPITOR20 MG PO (10:32)
[2020-09-01] MEDS ORDERED: KEFLEX500 MG PO (10:41)
--- NOTE | 2020-09-01 11:06 | NUR ---
PT RESTING IN BED, FAMILY AT THE BEDSIDE VISITING. PT REPORTS HAVING MODERATE PAIN, PT MEDICATED PER EMAR ORDERS. SAFETY PRECAUTIONS IN PLACE. WILL CONTINUE TO MONITOR.
--- NOTE | 2020-09-01 11:44 | NUR ---
PT WAS SEEN THIS AM, DAUGHTER WAS IN THE ROOM WITH HER, FEEDING HER. REQUESTED THERAPIST TO RETURN IN THE AFTERNOON.
--- NOTE | 2020-09-01 12:03 | NUR ---
PT note Attempted to see patient in AM. She at first refused but was then agreeable to attept transfer. When attempting bed mobility, she reported increased abdominal pain. This persisted with attempts at movement and she asked to stop treatment. We will attempt to sync our Tx with pain control efforts
[2020-09-01] MEDS ORDERED: PREDNISONE10 MG PO (13:01)
[2020-09-01 15:00] VITALS: BP 132/63
--- NOTE | 2020-09-01 15:43 | NUR ---
PT RESTING IN BED, NO S/S OF DISTRESS AT THIS TIME. SAFETY PRECAUTIONS IN PLACE. WILL CONTINUE MONITOR.
--- NOTE | 2020-09-01 16:39 | NUR ---
REPORT CALLED TO [facility] TO NURSE TAKING REPORT KAT,
--- NOTE | 2020-09-01 18:12 | NUR ---
Discharge instructions given. Patient verbalizes understanding of same. Discharged in stable condition via Medical Transport to [facility] with staff. All belongings sent with pt.
== END 2020-09-01 18:12 | DRG 281 ==
LOC: ED 12:45 → ED-I 14:50 → ED 15:05 → MS2 15:06
PROVIDERS: Family Medicine; Nurse Practitioner; ADMIT Internal Medicine; ATTEND Internal Medicine
DX: I21.4 Non-ST elevation (NSTEMI) myocardial infarction (principal); N39.0 Urinary tract infection, site not specified; F03.90 Unspecified dementia, unspecified severity, without behavioral disturbance, psychotic disturbance, mood disturbance, and anxiety; E78.5 Hyperlipidemia, unspecified; G40.909 Epilepsy, unspecified, not intractable, without status epilepticus; E03.9 Hypothyroidism, unspecified; S00.81XA Abrasion of other part of head, initial encounter; M25.552 Pain in left hip; M25.551 Pain in right hip; M25.562 Pain in left knee; M25.561 Pain in right knee; M25.511 Pain in right shoulder; K56.41 Fecal impaction; R76.8 Other specified abnormal immunological findings in serum; B96.20 Unspecified Escherichia coli [E. coli] as the cause of diseases classified elsewhere; W06.XXXA Fall from bed, initial encounter; Y92.003 Bedroom of unspecified non-institutional (private) residence as the place of occurrence of the external cause; Z86.79 Personal history of other diseases of the circulatory system; Z85.3 Personal history of malignant neoplasm of breast; Z20.828 Contact with and (suspected) exposure to other viral communicable diseases
CPT/HCPCS: J1644; J1650; J2060; Q9967